=== PATIENT | male | born 1965 | race Caucasian/White ===

== ENCOUNTER 2024-04-19 11:03 | Outpatient (AMB) | payer OTHER, SELFPAY ==
--- NOTE | 2024-04-19 11:09 | MHC.OFFVIS ---
Intake Visit Reasons: BPH with nocturia Intake Note: Patient is present for BPH WITH NOCTURIA Urology Medication:NONE Antibiotic Allergy:NONE Blood Thinner:ASPIRIN TODAY'S PVR:10ML'S Biological Photographer Required: No Allergies No Known Allergies Allergy (Verified 04/19/24 11:09) HPI Comments Details: Damon is a pleasant male. He is seen for the following urologic conditions - nocturia with urinary urgency Nocturia with urinary urgency Waking 3 times at night Stream adequate, emptying complete Discussed treatment options Has chronic fatigue with degree of hypotension Has concerns with low libido regarding finasteride Trial tadalafil [facility] Medical History (Updated 04/19/24 @ 12:04 by Stephen Jones MD) Nocturia Chronic fatigue syndrome BPH (benign prostatic hyperplasia) Depression Hypothyroidism HTN (hypertension) Post-nasal drip Chronic pain Anxiety PTSD (post-traumatic stress disorder) Review of Systems Const Denies chills and Denies fever(s) Card Reports no additional complaints and Denies syncope Resp Denies cough GI Denies abdominal pain and Denies heartburn Reports as per HPI and Denies change in libido Neuro Denies syncope Psych Denies change in libido Endo Denies change in libido Physical Exam Const General: cooperative, healthy appearing, comfortable and no acute distress Orientation/consciousness: patient oriented x3 HEENT Face and sinus: Yes normal facial exam Mouth: moist mucous membranes Neck Neck: Yes normal visual inspection, Yes full ROM and Yes trachea midline Chest Chest palpation & inspection: normal inspection of the chest Resp Effort & Inspection: normal respiratory effort, able to speak in complete sentences and no respiratory distress GI Inspection: Yes normal to inspection Back/Spine/Pelvis Cervical Spine: normal cervical lordosis Thoracic/Lumbar Spine: thoracic and lumbar spine normal to inspection Skin General skin exam: no rashes or lesions noted Neuro General: patient oriented x3, gait normal, tone normal and moves all extremities Extrem General: Yes normal to inspection and Yes capillary refill normal Office Procedures Post Void Residual Post Residual Void Post Void Residual (PVR): 10 88249-Npup Void Residual by ultrasound Results AMB Urinalysis, Automated UA Leukoctes 70 Carmenza/uL Last Edit by SANDIP Montiel on 04/19/24 11:24 UA Nitrite Negative Last Edit by SANDIP Montiel on 04/19/24 11:24 UA Urobilinogen 0.2 mg/dL Last Edit by SANDIP Montiel on 04/19/24 11:24 UA Protein 15 mg/dL Last Edit by SANDIP Montiel on 04/19/24 11:24 UA pH 6.0 Last Edit by SANDIP Montiel on 04/19/24 11:24 UA Blood 0 Cordell/uL Last Edit by SANDIP Montiel on 04/19/24 11:24 UA Specific Concord 1.020 Last Edit by SANDIP Montiel on 04/19/24 11:24 UA Ketone Negative Last Edit by SANDIP Montiel on 04/19/24 11:24 UA Bilirubin 0 mg/dL Last Edit by SANDIP Montiel on 04/19/24 11:24 UA Glucose 0 mg/dL Last Edit by SANDIP Montiel on 04/19/24 11:24 Results Reviewed Results Reviewed: Laboratory Last Values Urine pH (Auto) 6.0 04/19/24 11:23 Specific Concord (Auto) 1.020 04/19/24 11:23 Urine Protein (Auto) 15 mg/dL 04/19/24 11:23 Glucose (UA)(Auto) 0 mg/dL 04/19/24 11:23 Urine Ketones (Auto) Negative 04/19/24 11:23 Urine Blood (Auto) 0 Cordell/uL 04/19/24 11:23 Urine Nitrite (Auto) Negative 04/19/24 11:23 Urine Bilirubin (Auto) 0 mg/dL 04/19/24 11:23 Urine Urobilinogen (Auto) 0.2 mg/dL 04/19/24 11:23 Leukocyte Esterase (Auto) 70 Carmenza/uL 04/19/24 11:23 Assessment & Plan Assessment & Plan (1) Urinary urgency: Code(s): R39.15 - Urgency of urination Category: Medical (2) Nocturia associated with benign prostatic hyperplasia: Code(s): N40.1 - Benign prostatic hyperplasia with lower urinary tract symptoms; R35.1 - Nocturia Category: Medical Plan Three-month follow-up Orders: Orders AMB Urinalysis Automated Today Z13.9 - Encounter for screening, unspecified Testosterone, Free/Total 3 Months N40.1 - Benign prostatic hyperplasia with lower urinary tract symptoms, R35.1 - Nocturia US bladder Today N40.1 - Benign prostatic hyperplasia with lower urinary tract symptoms, R35.1 - Nocturia, R39.12 - Poor urinary stream Medications: New tadalafil BIN PCN Group [facility] DR33 [id number] 5 mg PO DAILY 90 tabs 0RF sexual activity 90 days E11.69 - Type 2 diabetes mellitus with other specified complication, N40.1 - Benign prostatic hyperplasia with lower urinary tract symptoms, N52.1 - Erectile dysfunction due to diseases classified elsewhere, R35.1 - Nocturia Patient Instructions: Imaging studies, laboratory and physical exam results were discussed and reviewed in detail. No major barriers to patient understanding were identified. An opportunity to ask questions regarding the treatment plan was provided. All questions were answered. The patient expressed understanding and agreement with the above treatment plan. The patient is aware they should contact our office by phone for worsening of their current condition or the appearance of new urologic symptoms. Compliance is encouraged with any medications and followup testing that is ordered. It is a privilege to participate in the urologic care of your patient. If you have any questions or concerns regarding treatment for the above conditions, or other urologic issues, please do not hesitate to contact me. The office telephone contact is [phone]. This note is constructed using voice recognition software. While every effort has been made to ensure accuracy set up mechanic crown assembly machine errors may have been included. Yours sincerely, Dr Stephen Jones MD, [facility] - Urology Providers of Expert, Compassionate Care for the Genitourinary System Coding Level of Care Code New Pt Level 4 (17492) Diagnoses Urinary urgency R39.15 Nocturia associated with benign prostatic hyperplasia N40.1; R35.1 CPT Codes Post Residual Void - PVR CPT Code: 20918-Ktdd Void Residual by ultrasound ([id number])
--- OUTSIDE RECORDS SUMMARY | 2024-04-19 13:22 | XMS_ITS | Data Portability ---
Author Organization [facility], [facility] Address [address] [place] [address] Assessment No assessment recorded. Plan of Treatment Reminders Order Date Submit Date Provider Last Modified By Organization Details Last Modified Time Details Appointments None record ed. Lab None record ed. Referral None record ed. Procedures None record ed. Surgeries None record ed. Imaging None record ed. Medication Orders None record ed. Patient TargetsNo targets recorded. Patient InstructionsNo instructions recorded. Reason for Referral None Reported. Procedures Surgical History Date Name Laterality Status Provider Name and Address Organization Details Recorded Time 6 Elva - Colonoscopy completed Mohsen Stevenson MD [address] [place] [address], [id number] 10/09/2015 12:08:25 Imaging Results None recorded. Procedure Notes None recorded. Medical Equipment None Reported. Medications Name Sig Start Date Stop Date Status Note LastModified by Organization Details LastModified Time clonazepam 1 mg tablet active Not Available Not Available Not Available prochlorperazine maleate 10 mg tablet active Not Available Not Available Not Available levothyroxine 25 mcg tablet active Not Available Not Available N ot Available levothyroxine 75 mcg tablet active Not Available Not Available N ot Available levothyroxine 100 mcg tablet active Not Available Not Available N ot Available citalopram 20 mg tablet active Not Available Not Available Not Available lorazepam 0.5 mg tablet active Not Available Not Available Not Available ibuprofen 600 mg tablet active Not Available Not Available Not Available Nature-Throid 32.5 mg tablet active Not Available Not Available No t Available Vitals None Recorded Social History None recorded. Functional Status None recorded. Mental Status None recorded. Family History Nothing Reported. Medical History No medical history recorded. Past Encounters Encounter ID Performer Location Encounter Start Date Encounter Closed Date Diagnosis/Indication Diagnosis SNOMED-CT Code Diagnosis ICD10 Code Diagnosis Note [id number] Mohsen Stevenson MD [facility], [address] [address] 10/09/2015 10:33:55 10/09/2015 14:47:44 Health Concerns Section Related Observation LastModified by Organization Detai ls LastModified Time None Recorded Concern Status LastModified by Organization Details LastModified Time None Recorded Advance Directives Directive None Recorded Payers Encounter Date Sequence Insurance Name Policy Number Policy Mathis Covered Member ID Mathis Member ID Guarantor Name 10/09/2015 1 [facility] DIRECT CONNECTORCARE TYPE II (HMO) Damon Randle [id number] Damon Randle
== END 2024-04-19 12:10 | disposition home or self-care (01) ==
PROVIDERS: Visit Provider Urology
DX: N40.1 Benign prostatic hyperplasia with lower urinary tract symptoms (principal); R39.15 Urgency of urination; R35.1 Nocturia; Z13.9 Encounter for screening, unspecified
CPT/HCPCS: 99204

== ENCOUNTER → 2024-04-19 11:03 | Outpatient (BNVA) | payer OTHER, SELFPAY | PROVIDERS: Visit Provider Urology | DX: N40.1 Benign prostatic hyperplasia with lower urinary tract symptoms (principal); R35.1 Nocturia; R39.15 Urgency of urination | CPT/HCPCS: 51798; 81003; 99202 ==

== ENCOUNTER 2024-06-05 11:29 | Outpatient (REF) | payer OTHER, SELFPAY ==
--- NOTE | ~2024-06-05 | US_ITS ---
CLINICAL HISTORY: R39.12 - Poor urinary stream US Urinary Bladder Comparison: None Findings: The urinary bladder contains a 10 mm mobile bladder stone. Bladder is moderately distended. Prevoid volume: 174 mL Postvoid volume: 59 mL Ureteral jets are visualized bilaterally. The prostate gland measures 4.9 x 4.0 x 3.3 cm with a prostatic volume 34 mL. There are calcifications within the prostate gland. IMPRESSION: 1. Prostatomegaly. 2. Postvoid urinary bladder volume is 59 mL 3. 10 mm mobile bladder stone present This document has been electronically signed by: Prince Simon MD on 06/06/2024 21:00:25
--- OUTSIDE RECORDS SUMMARY | 2024-06-05 13:57 | XMS_ITS | Data Portability ---
Author Organization [facility] Address [address] [place] [address] Assessment No assessment recorded. Plan of Treatment [...] Elva - Colonoscopy completed Mohsen Stevenson MD [address] [place] [address], [phone] 10/09/2015 12:08:25 Imaging Results None recorded. Procedure [...] SNOMED-CT Code Diagnosis ICD10 Code Diagnosis Note [id number] Mohsen Stevenson MD [facility], [address] [address] 10/09/2015 10:33:55 10/09/2015 14:47:44 Health Concerns Section Related Observation LastModified by Organization Detai ls LastModified Time None Recorded Concern Status LastModified by Organization Details LastModified Time None Recorded Advance Directives Directive None Recorded Payers Encounter Date Sequence Insurance Name Policy Number Policy Mathis Covered Member ID Mathis Member ID Guarantor Name 10/09/2015 1 PENDING SALE TO [facility] DIRECT CONNECTORCARE TYPE II (HMO) Damon Randle [id number] Damon Randle
== END 2024-06-05 11:30 | disposition home or self-care (01) ==
LOC: HO.US 11:29
PROVIDERS: Visit Provider Urology
DX: R39.12 Poor urinary stream (principal); R35.1 Nocturia; N40.1 Benign prostatic hyperplasia with lower urinary tract symptoms
CPT/HCPCS: 76857

== ENCOUNTER → 2024-06-05 11:31 | Outpatient (BNV) | payer OTHER, SELFPAY | PROVIDERS: Visit Provider Radiology Diagnostic Radiology | DX: R39.12 Poor urinary stream (principal); N40.0 Benign prostatic hyperplasia without lower urinary tract symptoms; N21.0 Calculus in bladder | CPT/HCPCS: 76857 ==

== ENCOUNTER 2024-06-21 11:44 | Outpatient (AMB) | payer OTHER, SELFPAY ==
--- NOTE | 2024-06-21 11:49 | A.OFFVIS_ITS ---
Intake Visit Reasons: 2m/US/Testo/PVR(Set)US 06/05 Intake Note: Pt presents to the office today for a 2 month follow up/US/Testo/PVR PVR:0mL Allergies No Known Allergies Allergy (Verified 06/21/24 11:49) HPI Comments Details: Damon is a pleasant male. He is seen for the following urologic conditions - nocturia with urinary urgency Recent lab work 05/28 T 610 Follow-up from trial of tadalafil Good effect Reduced nocturia Improved erections Nocturia with urinary urgency Initial presentation Waking 3 times at night Stream adequate, emptying complete Has chronic fatigue with degree of hypotension Has concerns with low libido regarding finasteride - medication completed ON LICENSE OF [facility] Medical History Nocturia Chronic fatigue syndrome BPH (benign prostatic hyperplasia) Depression Hypothyroidism HTN (hypertension) Post-nasal drip Chronic pain Anxiety PTSD (post-traumatic stress disorder) Review of Systems Const Denies chills and Denies fever(s) Card Reports no additional complaints and Denies syncope Resp Denies cough GI Denies abdominal pain and Denies heartburn Reports as per HPI and Denies change in libido Neuro Denies syncope Psych Denies change in libido Endo Denies change in libido Physical Exam Const General: cooperative, healthy appearing, comfortable and no acute distress Orientation/consciousness: patient oriented x3 HEENT Face and sinus: Yes normal facial exam Mouth: moist mucous membranes Neck Neck: Yes normal visual inspection, Yes full ROM and Yes trachea midline Chest Chest palpation & inspection: normal inspection of the chest Resp Effort & Inspection: normal respiratory effort, able to speak in complete sentences and no respiratory distress GI Inspection: Yes normal to inspection Back/Spine/Pelvis Cervical Spine: normal cervical lordosis Thoracic/Lumbar Spine: thoracic and lumbar spine normal to inspection Skin General skin exam: no rashes or lesions noted Neuro General: patient oriented x3, gait normal, tone normal and moves all extremities Extrem General: Yes normal to inspection and Yes capillary refill normal Office Procedures Post Void Residual Post Residual Void Post Void Residual (PVR): 0 46324-Mrad Void Residual by ultrasound Assessment & Plan Assessment & Plan (1) Nocturia associated with benign prostatic hyperplasia: Code(s): N40.1 - Benign prostatic hyperplasia with lower urinary tract symptoms; R35.1 - Nocturia Category: Medical (2) Urinary urgency: Code(s): R39.15 - Urgency of urination Category: Medical Plan Continue tadalafil, six-month follow-up Orders: Orders AMB Post Void Residual by ultrasound 06/21/24 N40.1 - Benign prostatic hyperplasia with lower urinary tract symptoms, R35.1 - Nocturia Medications: Refilled tadalafil BIN PCN Group [facility] DR33 [id number] 5 mg PO DAILY 90 tabs 1RF bladder instability 90 days N40.1 - Benign prostatic hyperplasia with lower urinary tract symptoms, R35.1 - Nocturia Patient Instructions: This note is constructed using voice recognition software. While every effort has been made to ensure accuracy panel raiser operator errors may have been included. Imaging studies, laboratory and physical exam results were discussed and reviewed in detail. No major barriers to patient understanding were identified. An opportunity to ask questions regarding the treatment plan was provided. All questions were answered. The patient expressed understanding and agreement with the above treatment plan. The patient is aware they should contact our office by phone for worsening of their current condition or the appearance of new urologic symptoms. Compliance is encouraged with any medications and followup testing that is ordered. It is a privilege to participate in the urologic care of your patient. If you have any questions or concerns regarding treatment for the above conditions, or other urologic issues, please do not hesitate to contact me. The office telephone contact is [phone]. Sincerely, Dr Stephen Jones MD, [facility] - Urology Compassionate Specialist Care for the Genitourinary System Coding Level of Care Code Est Pt Level 3 (53046) Diagnoses Nocturia associated with benign prostatic hyperplasia N40.1; R35.1 Urinary urgency R39.15 CPT Codes Post Residual Void - PVR CPT Code: 74291-Ajbs Void Residual by ultrasound ([id number])
== END 2024-06-21 12:15 | disposition home or self-care (01) ==
LOC: HO.HUSH 11:45
PROVIDERS: Visit Provider Urology
DX: N40.1 Benign prostatic hyperplasia with lower urinary tract symptoms (principal); R35.1 Nocturia; R39.15 Urgency of urination
CPT/HCPCS: 99213

== ENCOUNTER → 2024-06-21 11:44 | Outpatient (BNVA) | payer OTHER, SELFPAY | PROVIDERS: Visit Provider Urology | DX: N40.1 Benign prostatic hyperplasia with lower urinary tract symptoms (principal); R35.1 Nocturia; R39.15 Urgency of urination | CPT/HCPCS: 51798; 99212 ==

== ENCOUNTER 2025-01-10 10:32 | Outpatient (AMB) | payer OTHER, SELFPAY ==
--- NOTE | 2025-01-10 10:33 | A.OFFVIS_ITS ---
Intake Visit Reasons: 6m/PVR Intake Note: patient presents today for: 6mo follow up urology medications: vitC, tadalafil blood thinners: none today's PVR: 75mls Meter Mechanic Required: No Accompanied by: Self / Same As Patient Allergies No Known Allergies Allergy (Verified 01/10/25 10:34) HPI Comments Details: Damon is a pleasant male. He is seen for the following urologic conditions - nocturia with urinary urgency - erectile dysfunction Did not tolerate daily tadalafil It was helpful for stabilizing bladder Discussed other medications At this point he is interested in a procedure We discussed incision versus laser Will obtain bladder ultrasound Erectile dysfunction Labs 05/28 T 610 Good effect from daily tadalafil Nocturia with urinary urgency Initial presentation Waking 3 times at night Stream adequate, emptying complete Has chronic fatigue with degree of hypotension Has concerns with low libido regarding finasteride - medication [facility] Medical History Nocturia Chronic fatigue syndrome BPH (benign prostatic hyperplasia) Depression Hypothyroidism HTN (hypertension) Post-nasal drip Chronic pain Anxiety PTSD (post-traumatic stress disorder) Review of Systems Const Denies chills and Denies fever(s) Card Reports no additional complaints and Denies syncope Resp Denies cough GI Denies abdominal pain and Denies heartburn Reports as per HPI and Denies change in libido Neuro Denies syncope Psych Denies change in libido Endo Denies change in libido Physical Exam Const General: cooperative, healthy appearing, comfortable and no acute distress Orientation/consciousness: patient oriented x3 HEENT Face and sinus: Yes normal facial exam Mouth: moist mucous membranes Neck Neck: Yes normal visual inspection, Yes full ROM and Yes trachea midline Chest Chest palpation & inspection: normal inspection of the chest Resp Effort & Inspection: normal respiratory effort, able to speak in complete sentences and no respiratory distress GI Inspection: Yes normal to inspection Back/Spine/Pelvis Cervical Spine: normal cervical lordosis Thoracic/Lumbar Spine: thoracic and lumbar spine normal to inspection Skin General skin exam: no rashes or lesions noted Neuro General: patient oriented x3, gait normal, tone normal and moves all extremities Extrem General: Yes normal to inspection and Yes capillary refill normal Assessment & Plan Assessment & Plan (1) Nocturia associated with benign prostatic hyperplasia: Code(s): N40.1 - Benign prostatic hyperplasia with lower urinary tract symptoms; R35.1 - Nocturia Category: Medical (2) Urinary urgency: Code(s): R39.15 - Urgency of urination Category: Medical Plan Risks, benefits and alternatives to therapy were discussed. These include but are not limited to infection, bleeding, damage to local organs and tissues, need for further interventions. Anesthetic risks regarding cardiac arrhythmia, blood clots, and potential morta lity were discussed. The patient understands the typical recovery time and the outpatient nature of the procedure. After consideration of these risks the patient gives full informed consent and they wish to move ahead with the procedure. - cystoscopy prostate incision plasma Orders: Orders US bladder Today N40.1 - Benign prostatic hyperplasia with lower urinary tract symptoms, R35.1 - Nocturia Patient Instructions: This note is constructed using voice recognition software. While every effort has been made to ensure accuracy surgery nurse errors may have been included. Imaging studies, laboratory and physical exam results were discussed and reviewed in detail. No major barriers to patient understanding were identified. An opportunity to ask questions regarding the treatment plan was provided. All questions were answered. The patient expressed understanding and agreement with the above treatment plan. The patient is aware they should contact our office by phone for worsening of their current condition or the appearance of new urologic symptoms. Compliance is encouraged with any medications and followup testing that is ordered. It is a privilege to participate in the urologic care of your patient. If you have any questions or concerns regarding treatment for the above conditions, or other urologic issues, please do not hesitate to contact me. The office telephone contact is [phone]. Sincerely, Dr Stephen Jones MD, [facility] - Urology Compassionate Specialist Care for the Genitourinary System Coding Level of Care Code Est Pt Level 4 (23858) Diagnoses Nocturia associated with benign prostatic hyperplasia N40.1; R35.1 Urinary urgency R39.15
== END 2025-01-10 11:17 | disposition home or self-care (01) ==
LOC: HO.HUSH 10:32
PROVIDERS: Visit Provider Urology
DX: N40.1 Benign prostatic hyperplasia with lower urinary tract symptoms (principal); R35.1 Nocturia; R39.15 Urgency of urination
CPT/HCPCS: 99214

== ENCOUNTER → 2025-01-10 10:32 | Outpatient (BNVA) | payer OTHER, SELFPAY | PROVIDERS: Visit Provider Urology | DX: N40.1 Benign prostatic hyperplasia with lower urinary tract symptoms (principal); R35.1 Nocturia; R39.15 Urgency of urination | CPT/HCPCS: 99212 ==

== ENCOUNTER 2025-03-05 10:59 | Outpatient (REF) | payer OTHER, SELFPAY ==
--- NOTE | ~2025-03-05 | US_ITS ---
CLINICAL HISTORY: N40.1 - Benign prostatic hyperplasia with lower urinary tract symptoms US urinary bladder Comparison: US - US BLADDER - 06/05/24 11:37 EST Findings: Mobile bladder calculus 1 cm, no bladder wall thickening or mass. Prevoid volume 174 mL. Postvoid volume 59 mL. Bilateral ureteral jets visualized. Prostate measures 3.6 x 3.4 x 4.9 cm, 31 mL, shadowing calcification noted in the central prostate, non-specific, probably dystrophic calcification. Impression: Bladder calculus, otherwise unremarkable. This document has been electronically signed by: Caron Lyn MD on 03/05/2025 14:50:20
== END 2025-03-05 11:00 | disposition home or self-care (01) ==
LOC: HO.US 10:59
PROVIDERS: PCP Family Medicine; Visit Provider Urology
DX: N40.1 Benign prostatic hyperplasia with lower urinary tract symptoms (principal); R35.1 Nocturia
CPT/HCPCS: 76857

== ENCOUNTER → 2025-03-05 11:01 | Outpatient (BNV) | payer OTHER, SELFPAY | PROVIDERS: PCP Family Medicine; Visit Provider Radiology Diagnostic Radiology | DX: N40.1 Benign prostatic hyperplasia with lower urinary tract symptoms (principal); N21.0 Calculus in bladder | CPT/HCPCS: 76857 ==

== ENCOUNTER 2025-03-14 14:50 | Outpatient (AMB) | payer OTHER, SELFPAY ==
--- NOTE | 2025-03-14 14:53 | MHC.OFFVIS ---
Intake Visit Reasons: Discussion on Monday Surgery(set) Intake Note: Reason for Visit: Discussion on monday surgery Urology Meds: Tadalafil, Vitamin C : Correctional Nurse Required: No Allergies No Known Allergies Allergy (Verified 03/17/25 06:10) HPI Comments Details: Damon is a pleasant male. He is seen for the following urologic conditions - nocturia with urinary urgency - erectile dysfunction Telemedicine Evaluation 15 min Consultation [employer] Discussion regarding prostate procedure Plan Olympus plasma button procedure Recent bladder ultrasound Prostate measures 3.6 x 3.4 x 4.9 cm, 31 mL, shadowing calcification noted in the central prostate, non-specific, probably dystrophic calcification Erectile dysfunction Labs 05/28 T 610 Good effect from daily tadalafil Nocturia with urinary urgency Initial presentation Waking 3 times at night Stream adequate, emptying complete Has chronic fatigue with degree of hypotension Has concerns with low libido regarding finasteride - medication completed [facility] Medical History History of swallowed foreign body IBS (irritable bowel syndrome) Cardiac anomaly Hx of chest pain Hallucinogen use (03/02/25) Nocturia Chronic fatigue syndrome BPH (benign prostatic hyperplasia) Depression Hypothyroidism HTN (hypertension) Post-nasal drip Chronic pain Anxiety PTSD (post-traumatic stress disorder) Surgical History Hx of cardiac catheterization (09/15/22) Hx of colonoscopy Social History Household Members: None Housing: Apartment Are you a primary career law clerk to a significant other at home: No Do you presently have visiting nurse or other home services: No 75 years or older and lives alone: No Patient Tobacco Use Status: Never used Tobacco e-Cigarette/Vaping Use: Never Used Substance Use Type: Hallucinogens Review of Systems Const All systems reviewed & are unremarkable except as noted in HPI and below Reports no additional complaints Resp Reports no additional complaints GI Reports no additional complaints Reports as per HPI Musc Reports no additional complaints Physical Exam Telemedicine evaluation Appropriate responses Regular breathing rate and rhythm HEENT Head: Yes normal to inspection Ears: hearing grossly normal bilaterally Eyes General: appearance normal, both eyes and all related structures Neck Neck: Yes normal visual inspection Chest Chest palpation & inspection: normal inspection of the chest Resp Effort & Inspection: normal respiratory effort and able to speak in complete sentences Telehealth Telehealth Telehealth Platform: Telephone Location of provider rendering services: practice address Location of patient: address on file Patient Identification confirmed using: Name, : Yes Telehealth method: voice only Patient verbally consented to treatment: Yes Patient verbally consented to billing insurance company: Yes Patient informed of any privacy concerns related to visit: Yes Assessment & Plan Assessment & Plan (1) Nocturia associated with benign prostatic hyperplasia: Code(s): N40.1 - Benign prostatic hyperplasia with lower urinary tract symptoms; R35.1 - Nocturia Category: Medical (2) Urinary urgency: Code(s): R39.15 - Urgency of urination Category: Medical Plan Risks, benefits and alternatives to therapy were discussed. These include but are not limited to infection, bleeding, damage to local organs and tissues, need for further interventions. Anesthetic risks regarding cardiac arrhythmia, blood clots, and potential mortality were discussed. The patient understands the typical recovery time and the outpatient nature of the procedure. After consideration of these risks the patient gives full informed consent and they wish to move ahead with the procedure. - Olympus plasma button prostate procedure Patient Instructions: This note is constructed using voice recognition software. While every effort has been made to ensure accuracy pencil sorter errors may have been included. Imaging studies, laboratory and physical exam results were discussed and reviewed in detail. No major barriers to patient understanding were identified. An opportunity to ask questions regarding the treatment plan was provided. All questions were answered. The patient expressed understanding and agreement with the above treatment plan. The patient is aware they should contact our office by phone for worsening of their current condition or the appearance of new urologic symptoms. Compliance is encouraged with any medications and followup testing that is ordered. It is a privilege to participate in the urologic care of your patient. If you have any questions or concerns regarding treatment for the above conditions, or other urologic issues, please do not hesitate to contact me. The office telephone contact is [phone]. Sincerely, Dr Stephen Jones MD, [facility] - Urology Compassionate Specialist Care for the Genitourinary System Coding Level of Care Code Tele Est Pt Level 3 (50793) Diagnoses Nocturia associated with benign prostatic hyperplasia N40.1; R35.1 Urinary urgency R39.15
== END 2025-03-14 15:48 | disposition home or self-care (01) ==
LOC: HO.HUSH 14:50
PROVIDERS: PCP Family Medicine; Visit Provider Urology
DX: N40.1 Benign prostatic hyperplasia with lower urinary tract symptoms (principal); R35.1 Nocturia; R39.15 Urgency of urination
CPT/HCPCS: 98013

== ENCOUNTER 2025-03-17 05:59 | Day surgery (SDC) | payer OTHER, SELFPAY ==
--- NOTE | 2025-03-12 12:25 | HO.ANESPROP2 ---
Documented by User: Ella Henriquez NP 03/13/25 13:49 HPI - Anesthesia Eval Consult details Narrative: 59yo M for Cystoscopy, Transurethral Incision Prost with Bipolat Button Regular ingestion of hallucinogenic mushrooms. Last 03/02/25 - advised by RN to hold preop. 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) Nocturia Chronic fatigue syndrome BPH (benign prostatic hyperplasia) Depression Hypothyroidism HTN (hypertension) Post-nasal drip Chronic pain Anxiety PTSD (post-traumatic stress disorder) Surgical History Surgical History Hx of cardiac catheterization (09/15/22) Hx of colonoscopy Social History Social History Household Members: None Housing: Apartment Are you a primary healthcare economics consultant to a significant other at home: No Do you presently have visiting nurse or other home services: No Patient Tobacco Use Status: Never used Tobacco e-Cigarette/Vaping Use: Never Used Substance Use Type: Hallucinogens Meds Allergies Allergy/AdvReac Type Severity Reaction Status Date / Time No Known Allergies Allergy Verified 03/17/25 06:10 Home Medications ?Medication ?Instructions ?Recorded ?Confirmed ?Last Taken ?Type amlodipine 5 mg tablet 5 mg PO BEDTIME 04/15/24 03/17/25 Unknown History ascorbic acid (vitamin C) 250 mg 250 mg PO DAILY 04/15/24 03/17/25 Unknown History tablet aspirin 81 mg tablet,delayed 81 mg PO BEDTIME 04/15/24 03/17/25 03/10/25 History release levothyroxine 25 mcg tablet 25 mcg PO .DAILY @1600 04/15/24 03/17/25 03/17/25 05:00 History liothyronine 5 mcg tablet 10 mcg PO BID 04/15/24 03/17/25 03/17/25 05:00 History lorazepam 0.5 mg tablet 0.5 mg PO TID PRN Anxiety 04/15/24 03/17/25 03/17/25 05:00 History magnesium oxide 250 mg PO DAILY 04/15/24 03/17/25 Unknown History arginine 1,000 mg-B12 16.6 0.5 tab PO DAILY 03/13/25 03/17/25 Unknown History mcg-folic acid 66.6 mcg-B6 3.3 mg tablet (L-Arginine [employer]) levothyroxine 25 mcg tablet 37.5 mcg PO .QAM 03/13/25 03/17/25 03/17/25 05:00 History multivitamin 1 tab PO DAILY 03/13/25 03/17/25 Unknown History naltrexone 4.5 mg PO BEDTIME 03/13/25 03/17/25 Unknown History omega 9-fok-vtw-fish oil 1,200 mg 1 cap PO DAILY 03/13/25 03/17/25 03/10/25 History (144 mg-216 mg) capsule (Fish Oil) tadalafil 5 mg tablet 2.5 mg PO Q OTHER DAY bladder 03/13/25 03/17/25 Unknown History instability 5-hydroxytryptophan (5-HTP) 100 mg 100 mg PO BEDTIME 03/17/25 03/17/25 Unknown History capsule (5-HTP) Exam Narrative Narrative: EKG 07/2024 SR @ 69 Assessment and Plan Assessment Anesthesia Assessment: Chart Reviewed Documented by User: Jose Manuel Bernardo MD 03/17/25 08:07 [facility] Past Medical History Medical History History of swallowed foreign body IBS (irritable bowel syndrome) Cardiac anomaly Hx of chest pain Hallucinogen use (03/02/25) Nocturia Chronic fatigue syndrome BPH (benign prostatic hyperplasia) Depression Hypothyroidism HTN (hypertension) Post-nasal drip Chronic pain Anxiety PTSD (post-traumatic stress disorder) Functional capacity: independent ambulation Family History Family history of problems with anesthesia: No Surgical History Surgical History Hx of cardiac catheterization (09/15/22) Hx of colonoscopy History of Problems with Anesthesia: No Social History Social History Household Members: None Housing: Apartment Are you a primary healthcare economics consultant to a significant other at home: No Do you presently have visiting nurse or other home services: No Patient Tobacco Use Status: Never used Tobacco e-Cigarette/Vaping Use: Never Used Substance Use Type: Hallucinogens Meds Allergies Allergy/AdvReac Type Severity Reaction Status Date / Time No Known Allergies Allergy Verified 03/17/25 06:10 Home Medications ?Medication ?Instructions ?Recorded ?Confirmed ?Last Taken ?Type amlodipine 5 mg tablet 5 mg PO BEDTIME 04/15/24 03/17/25 Unknown History ascorbic acid (vitamin C) 250 mg 250 mg PO DAILY 04/15/24 03/17/25 Unknown History tablet aspirin 81 mg tablet,delayed 81 mg PO BEDTIME 04/15/24 03/17/25 03/10/25 History release levothyroxine 25 mcg tablet 25 mcg PO .DAILY @1600 04/15/24 03/17/25 03/17/25 05:00 History liothyronine 5 mcg tablet 10 mcg PO BID 04/15/24 03/17/25 03/17/25 05:00 History lorazepam 0.5 mg tablet 0.5 mg PO TID PRN Anxiety 04/15/24 03/17/25 03/17/25 05:00 History magnesium oxide 250 mg PO DAILY 04/15/24 03/17/25 Unknown History arginine 1,000 mg-B12 16.6 0.5 tab PO DAILY 03/13/25 03/17/25 Unknown History mcg-folic acid 66.6 mcg-B6 3.3 mg tablet (L-Arginine [employer]) levothyroxine 25 mcg tablet 37.5 mcg PO .QAM 03/13/25 03/17/25 03/17/25 05:00 History multivitamin 1 tab PO DAILY 03/13/25 03/17/25 Unknown History naltrexone 4.5 mg PO BEDTIME 03/13/25 03/17/25 Unknown History omega 0-yst-ruq-fish oil 1,200 mg 1 cap PO DAILY 03/13/25 03/17/25 03/10/25 History (144 mg-216 mg) capsule (Fish Oil) tadalafil 5 mg tablet 2.5 mg PO Q OTHER DAY bladder 03/13/25 03/17/25 Unknown History instability 5-hydroxytryptophan (5-HTP) 100 mg 100 mg PO BEDTIME 03/17/25 03/17/25 Unknown History capsule (5-HTP) Exam Exam Date and Time: 03/17/25 Airway Mallampati Class: II TM Dist: >3cm Neck ROM: Full Loose/Missing/Broken Teeth: No Heart: rrr Lungs: cta Other: normal Assessment and Plan Assessment Anesthesia Assessment: Anesthesia Plan Discussed Final Anesthetic Review Family History of Problems with Anesthesia: No History of Problems with Anesthesia: No NPO: Yes ASA Class: II Final Preanesthetic Review: No Changes in Pt Med Stat, Meds/Allgs Chart Reviewed, Consent Obtained/Reviewed and Anes Risks/Benef Reviewed Patient Risk: Low Procedure Risk: Low Anesthetic Plan Anesthetic Plan: GA Disposition: Standard PACU
[2025-03-13 11:22] VITALS: BMI 21.3
[2025-03-17] VITALS (8 sets, daily range): BP systolic 88–125; BP diastolic 40–70; PULSE 51–78; RESP 10–15; TEMP 35.8–36.4; O2SAT 96–100; BMI 21.5
[2025-03-17 06:43] LABS: Cannabinoid Screen Urine Not Detected (Not Detect)
[2025-03-17] MEDS: Lactated Ringers 1,000 ML 100 ML IVCONT (06:44)
--- NOTE | 2025-03-17 07:33 | P.HPSUR_ITS ---
Pre-Procedural Eval Section A - 24 Hr Update-Section A only Date of Service: 03/17/25 The patient is an INPATIENT: No Changes since office visit: No Cold of Flu in the past 2 weeks, No New Medical Problems, No Changes in Medication and No Patient answered all questions The patient has been examined within 24 hours of the surgical procedure. The History & Physical has been completed within 30 days and I have reviewed it.: Yes Section B - Complete if H&P > 30 days Chief Complaint: Bladder-neck obstruction Details of Present Illness: plasma button incision of prostate Allergies: Allergies Allergy/AdvReac Type Severity Reaction Status Date / Time No Known Allergies Allergy Verified 03/17/25 06:10 Review of Systems Sugical H&P ROS: Negative: Constitution, Cardiovascular, Respiratory, Neurological, Psychiatric, Hem-Onc, Allergic/Immunologic, Gastrointestinal, Genitourinary, Musculoskeletal, Integumentary, Endocrine and Eyes/Ears/Nose/Throat Exam Surgical H&P Exam: Normal: HEENT, Normal: Heart, Normal: Lungs, Normal: Extremit ies, Normal: Abdomen, Normal: Skin and Normal: Neurological Plan Diagnosis/Plan: Unchanged I have reviewed the history and physical and performed a pertinent physical examination on my patient. No changes have occurred unless specified. Time Spent With Patient Time: Total time managing care of this patient today ____ minutes.
--- NOTE | 2025-03-17 08:07 | W.PM.OPN ---
Operative Note Operative Note Date of Service: 03/17/25 Narrative: PreOperative Diagnosis: Bladder outlet obstruction Post Operative Diagnosis: Bladder outlet obstruction Procedure: CPT 40181 - Transurethral electrosurgical prostate resection Surgeon: Dr Stephen Jones Anesthesia: General History of bladder outlet obstruction. Treated with alpha-ivy and other medications. Unable to tolerate side effects. On cystoscopy in office has tight bladder neck. Recommendation for prostate procedure with plasma button Transurethral electrosurgical prostate resection. Size of prostate less than 40 cc. Risks and benefits have been discussed. Focus was placed on development of retrograde ejaculation which is a normal part of this procedure. Procedure: After informed consent was verified the patient was brought to the operating room and placed in a supine position. Anesthesia was administered per protocol. Patient was placed in modified dorsal lithotomy position and prepped and draped in a sterile fashion. Safety pause time-out was confirmed. Antibiotics have been given. A Twenty-four Japanese cystoscope with visual obturator was inserted per urethra. No abnormalities were found of the anterior and bulbar urethra. The prostatic urethra shows tight bladder neck. The bladder was examined and both ureteric orifices were seen in their normal positions away from the area of interest. Bladder trabeculation grade 1/2. The visual obturator was removed and replaced with a plasma button resection loop. Using the plasma button incisions were made at the 5 and 7 o'clock position. The initial incision was made at the 7 o'clock position starting level with the bladder neck and in line with ureteric orifice on that side. The groove was extended distally to the area just proximal of the veru. This groove was deepened with multiple passes to define the lateral aspects of the median lobe area. The proximal portion of the groove was extended through the bladder neck and remained in line with the ureteric orifice on each side. The goal was to reveal prostate strands from trhe surgical capsule. Once clearly defined the groove was extended in the lateral direction. The 05:00 o'clock position groove was then created in a similar fashion. The intervening median lobe was then resected and enucleated tissue released into the bladder. The deep boundary of resection was defined by the prostate surgical capsule. In this case due to the smaller prostate size a decision was made not to proceed with further resection of the lateral lobes. Small stone was located within the bladder and removed via the resectoscope Both ureteric orifices were reviewed again in shown to be patent in away from any areas of energy damage. The apical area was reviewed and any stray mucosal ooze was controlled. A 22 Japanese 30 cc balloon Somers catheter was placed into the bladder using a flexible stylet. Clear efflux was obtained upon irrigation with a Corry piston syringe. 30 cc was placed in the balloon and gentle traction was placed. A snap was used to hold tension on the catheter to control bleeding during patient moved and transported. A drainage bag was placed. Once transportation is complete to the PACU the snap will be removed. The patient tolerated the procedure well, he was extubated in the operating and transferred in a stable condition to the recovery area. Pathology: Prostate tissue Drains: Somers catheter
== END 2025-03-17 10:07 | disposition home or self-care (01) ==
PROVIDERS: Nurse Practitioner; PCP Family Medicine; Visit Provider Urology
PROC: (CPT 52601; principal; 2025-03-17 07:30)
DX: N32.0 Bladder-neck obstruction (principal); N32.89 Other specified disorders of bladder; N21.0 Calculus in bladder; N40.1 Benign prostatic hyperplasia with lower urinary tract symptoms; R35.1 Nocturia; R39.15 Urgency of urination; I10 Essential (primary) hypertension; G89.29 Other chronic pain; G93.32 Myalgic encephalomyelitis/chronic fatigue syndrome; E03.9 Hypothyroidism, unspecified; F32.A Depression, unspecified; F41.9 Anxiety disorder, unspecified; F43.10 Post-traumatic stress disorder, unspecified; Z79.82 Long term (current) use of aspirin; Z79.899 Other long term (current) drug therapy; F16.90 Hallucinogen use, unspecified, uncomplicated
CPT/HCPCS: 52601; 80307; 88300; A4649; J0131; J1100; J1956; J2003; J2405; J2704; J3010

== ENCOUNTER → 2025-03-17 05:59 | Outpatient (BNV) | payer OTHER, SELFPAY | PROVIDERS: PCP Family Medicine; Visit Provider Urology | DX: N32.0 Bladder-neck obstruction (principal) | CPT/HCPCS: 52601 ==